=== PATIENT | female | born 2005 | race Hispanic/Latino ===

== ENCOUNTER 2025-06-08 09:32 | Day surgery (SDC) | payer OTHER ==
[2025-06-08] MEDS ORDERED: hydrALAZINE 20 MG/ML VIAL SLOW IVP PRN (09:55)
[2025-06-08 10:13] VITALS: BMI 26.2
[2025-06-08 10:42] LABS: Fetal Membranes Rupture No Membranes Rupture (No Rupture)
[2025-06-08 11:54] LABS: Glucose, Urine (Dipstick) Normal (Negative); Leukocyte 25 (Negative); Protein, Urine (Dipstick) 15 mg/dl (Neg-Trace); Specific Gravity, Urine 1.015 (1.005-1.030)
[2025-06-08 12:12] LABS: Bacteria/HPF 2+ HPF (None Seen); CAUTI Indications for Culture Pregnancy; RBC/HPF 0-3 HPF (0-3)
[2025-06-08 12:14] LABS: Urine Culture Reflex Yes Yes
[2025-06-09 20:48] LABS: Group B Streptococcus by PCR Not Detected (NotDetected)
== END 2025-06-08 14:25 | disposition home or self-care (01) ==
LOC: CSHLD/OP 09:32
PROVIDERS: ATTEND Emergency Medicine
DX: Z03.71 Encounter for suspected problem with amniotic cavity and membrane ruled out (principal); O99.891 Other specified diseases and conditions complicating pregnancy; N89.8 Other specified noninflammatory disorders of vagina; O99.343 Other mental disorders complicating pregnancy, third trimester; F32.A Depression, unspecified; Z67.10 Type A blood, Rh positive; Z3A.36 36 weeks gestation of pregnancy; Z79.899 Other long term (current) drug therapy
CPT/HCPCS: 76815; 81001; 84112; 87086; 87480; 87510; 87653; 87660; 99285